=== PATIENT | male | born 1965 | race Caucasian/White ===

== ENCOUNTER 2021-10-07 10:55 | Emergency (ER) | payer MEDICAID ==
[~2021-10-07] VITALS: Ht 180.3 cm; Wt 131.8 kg
[~2021-10-07 10:55] MED LIST: IBUP-1051 PO; ZOF4T PO
[2021-10-07 19:41] VITALS: BP 131/65
--- NOTE | 2021-10-07 19:42 | NUR ---
PT PLACED IN FT BED D, VITAL SIGNS TAKEN. PT HERE FOR ABCESS.
[2021-10-07] MEDS ORDERED: LIDOcaine 1% w/epiNEPHrine 1:200,000 30ml vial SQ ONE (19:55)
[2021-10-07] MEDS ORDERED: sulfamethoxazole/trimethoprim DS (800/160mg) tablet PO ONE (19:55)
[2021-10-07] MEDS ORDERED: LIDOCAINE 2% w/EPI 1:100:000 30mL injection MDV**cath lab 1 only SQ ONE (20:10)
[2021-10-07] MEDS ORDERED: SULF1TAB49 PO (22:51)
== END 2021-10-08 00:36 | disposition home or self-care (01) ==
LOC: ER 10:55
DX: L02.412 Cutaneous abscess of left axilla (principal); L02.411 Cutaneous abscess of right axilla; R50.9 Fever, unspecified; J45.909 Unspecified asthma, uncomplicated; F17.200 Nicotine dependence, unspecified, uncomplicated; F12.90 Cannabis use, unspecified, uncomplicated; Z90.89 Acquired absence of other organs; Z98.890 Other specified postprocedural states; Z88.0 Allergy status to penicillin; Z79.899 Other long term (current) drug therapy
CPT/HCPCS: 10060; 10160; 99284